=== PATIENT | male | born 1965 | race Caucasian/White ===

== ENCOUNTER 2018-04-04 09:19 | Outpatient (CLI) | payer BC | END 2018-04-04 09:20 | disposition home or self-care (01) | LOC: BICRAD 09:19 | PROVIDERS: ATTEND Internal Medicine | DX: R05 Cough (principal) | CPT/HCPCS: 71046 ==

== ENCOUNTER 2019-03-01 15:42 | Outpatient (CLI) | payer BC ==
--- NOTE | 2019-03-01 16:20 | RAD ---
PA AND LATERAL VIEWS OF THE CHEST: 03/01/19 HISTORY: Cough. FINDINGS: Comparison made with exam of 04/04/18. The heart size is normal. The lungs are expanded without focal areas of consolidation, pneumothoraces or pleural effusions. IMPRESSION: No radiographic evidence of acute cardiopulmonary process. POS: OFF
== END 2019-03-01 15:43 | disposition home or self-care (01) ==
LOC: BICRAD 15:42
PROVIDERS: ATTEND Internal Medicine
DX: R05 Cough (principal)
CPT/HCPCS: 71046

== ENCOUNTER 2019-05-30 01:37 | Emergency (ER) | payer BC | END 2019-05-30 02:10 | disposition home or self-care (01) | LOC: ERS 01:37 | DX: R04.0 Epistaxis (principal); E78.00 Pure hypercholesterolemia, unspecified | CPT/HCPCS: 99283 ==

== ENCOUNTER 2024-06-22 09:55 | Emergency (ER) | payer BC ==
[2024-06-22] MEDS ORDERED: Oxymetazoline HCl 0.05% (30 ML BOT) ONE (10:18)
== END 2024-06-22 11:03 | disposition home or self-care (01) ==
LOC: ERS 09:55
DX: R04.0 Epistaxis (principal); Z55.0 Illiteracy and low-level literacy
CPT/HCPCS: 99282